=== PATIENT | male | born 1975 | race Caucasian/White ===

== ENCOUNTER 2024-09-19 10:44 | Day surgery (SDC) | payer BC, OTHER ==
[~2024-09-19 10:44] MED LIST: LIDOCAINE 1% (10MG/ML) FOR IV START INTRADERMA PRN; ONDANSETRON 4 MG/2 ML VIAL IVP PRN
[2024-09-19 12:26] VITALS: RESP 16; TEMP 97.4
[2024-09-19] MEDS: LACTATED RINGERS 1,000 ML IV ONE (12:39)
[2024-09-19] MEDS: LACTATED RINGERS 1,000 ML IV SCH (12:39)
[2024-09-19 12:42] LABS: Glucose,Whole Blood 83 mg/dL (70-110)
[2024-09-19] MEDS ORDERED: PROPOFOL 10 MG/ML 20 ML VIAL IV ONE (13:32)
[2024-09-19] MEDS ORDERED: LIDOCAINE 1% INJ 10MG/ML (20 ML MDV) ONE (13:32)
--- NOTE | 2024-09-19 13:38 | P.GSHP ---
History of Present Illness H&P Date: 09/19/24 Chief Complaint: Colon cancer screening 49-year-old male here for colonoscopy. He has not had 1 previously. No bowel complaints. No family history of colon cancer. Past Medical History Past Medical History: GERD/Reflux Additional Past Medical History / Comment(s): gout, being worked up for possible thyroid issues, being worked up for abnormal kidney function labs History of Any Multi-Drug Resistant Organisms: None Reported Additional Past Surgical History / Comment(s): egd, wisdom teeth extraction Past Anesthesia/Blood Transfusion Reactions: No Reported Reaction Smoking Status: Former smoker - Past Family History Mother Family Medical History: Cancer Additional Family Medical History / Comment(s): breast ,kidney pacreas Father Family Medical History: Coronary Artery Disease (CAD) Medications and Allergies Home Medications Medication Instructions Recorded Confirmed Type predniSONE 0 mg PO DIRECTED 09/14/24 09/19/24 History Allergies Allergy/AdvReac Type Severity Reaction Status Date / Time allopurinol AdvReac Unknown Verified 09/19/24 12:22 Surgical - Exam Vital Signs Temp Pulse Resp BP Pulse Ox 97.4 F L 69 16 136/94 98 09/19/24 12:25 09/19/24 12:25 09/19/24 12:25 09/19/24 12:25 09/19/24 12:25 Physical exam: General: Well-developed, well-nourished HEENT: Normocephalic, sclerae nonicteric Abdomen: Nontender, nondistended Extremities: No edema Neuro: Alert and oriented Assessment and Plan (1) Colon cancer screening Narrative/Plan: Will proceed with colonoscopy at this time. Current Visit: Yes Status: Acute Code(s): Z12.11 - ENCOUNTER FOR SCREENING FOR MALIGNANT NEOPLASM OF COLON SNOMED Code(s): 723821911
--- NOTE | 2024-09-19 13:51 | P.PCN ---
Date of Procedure: 09/19/24 Procedure(s) Performed: PREOPERATIVE DIAGNOSIS: Colon cancer screening POSTOPERATIVE DIAGNOSIS: Mild diverticulosis PROCEDURE: Colonoscopy ANESTHESIA: MAC SURGEON: Nahum Guerrier M.D. SPECIMENS: None ENDOSCOPIC PROCEDURE: The patient was placed on the endoscopy table in the left decubitus position. The Olympus colonoscope was inserted into the anus and passed under direct visualization to the base of the cecum. The appendiceal orifice was visualized. From that point the scope was slowly withdrawn inspecting all surfaces carefully. There were no neoplastic inflammatory or polypoid lesions throughout the cecum, ascending, transverse, descending, sigmoid and rectum. There was minimal diverticulosis noted. Digital rectal examination was normal. The patient was taken to the recovery room in stable condition per anesthesia guidelines. RECOMMENDATIONS: Resume diet. Repeat colonoscopy 10 years.
[2024-09-19 14:22] VITALS: BP 116/85; PULSE 70
== END 2024-09-19 14:37 | disposition home or self-care (01) ==
LOC: ORWHC2ENDO 10:44
PROVIDERS: ATTEND Surgery
DX: Z12.11 Encounter for screening for malignant neoplasm of colon (principal); K57.30 Diverticulosis of large intestine without perforation or abscess without bleeding; Z79.52 Long term (current) use of systemic steroids; Z87.891 Personal history of nicotine dependence; Z88.8 Allergy status to other drugs, medicaments and biological substances
CPT/HCPCS: 45378; J2003; J2704